=== PATIENT | male | born 1995 | race Caucasian/White ===

== ENCOUNTER 2017-01-17 19:03 | Emergency (ER) | payer OTHER ==
--- NOTE | 2017-01-17 19:16 | ED Physician Documentation ---
PD HPI BACK INJURY - Stated complaint Stated Complaint: LOW BACK PX - History obtained from History obtained from: Patient - History of Present Illness Location: Lower Pain level max: 8 Pain level now: 6 Quality: Pain, Spasm Improved by: Rest Worsened by: Moving, Palpating Associated symptoms: No: Fever, Weakness, Numbness, Incontinent of urine, Unable to urinate, Hematuria, Incontinent of stool Contributing factors: No: Anticoagulated, Prior back surgery, Prosthetic joint Similar symptoms before: Has not had sx before Recently seen: Not recently seen - Additional information Additional information: Patient states that he was doing lifts today with 135 pound weights, felt a "twinge" in his back and stopped the lift. He then went to work and his back is tightened up throughout the day. Now having increasing spasm. Took Motrin approximately 6 hours ago, 400 mg without relief. Review of Systems Ten Systems: 10 systems reviewed and negative Constitutional: denies: Fever, Chills Nose: denies: Rhinorrhea / runny nose, Congestion Throat: denies: Sore throat Cardiac: denies: Chest pain / pressure Respiratory: denies: Cough GI: denies: Abdominal Pain, Nausea, Vomiting, Diarrhea : denies: Dysuria, Frequency, Hesitancy, Incontinent Skin: denies: Rash Musculoskeletal: denies: Neck pain Neurologic: denies: Focal weakness, Numbness, Headache, Head injury PD PAST MEDICAL HISTORY - Past Medical History Past Medical History: No - Past Surgical History Past Surgical History: No - Present Medications Home Medications: Ambulatory Orders Medication Instructions Recorded Confirmed Cyclobenzaprine [Flexeril] 10 mg PO TID PRN #20 tablet 01/17/17 Meloxicam [Mobic] 7.5 mg PO BID PRN #20 tablet 01/17/17 - Allergies Allergies/Adverse Reactions: Allergies Allergy/AdvReac Type Severity Reaction Status Date / Time No Known Drug Allergies Allergy Verified 01/17/17 19:12 - Living Situation Living Arrangement: reports: At home - Social History Does the pt smoke?: No Does the pt have substance abuse?: No - Family History Family history: reports: Non contributory PD ED PE NORMAL - Vitals Vital signs reviewed: Yes - General General: Alert and oriented X 3, No acute distress, Well developed/nourished - HEENT HEENT: Moist mucous membranes - Neck Neck: Supple, no meningeal sign, No bony TTP - Cardiac Cardiac: RRR, Strong equal pulses - Respiratory Respiratory: No respiratory distress, Clear bilaterally - Abdomen Abdomen: Soft, Non tender, Non distended - Back Back: Other (No midline tenderness to palpation. There is paraspinal muscle spasm present bilaterally low to mid lumbar.) - Derm Derm: Warm and dry - Extremities Extremities: No calf tenderness / cord, Other (normal bilateral lower extremity patellar and ankle jerk reflexes. Normal great toe extension bilaterally) - Neuro Neuro: Alert and oriented X 3, No motor deficit, No sensory deficit - Psych Psych: Normal mood, Normal affect Results - Vitals Vitals: Vital Signs - 24 hr 01/17/17 01/17/17 19:09 19:56 Temperature 36.2 C L Heart Rate 66 65 Respiratory 14 16 Rate Blood Pressure 142/84 H 132/92 H O2 Saturation 100 98 Oxygen O2 Source Room air PD MEDICAL DECISION MAKING - ED course Complexity details: re-evaluated patient, considered differential (no cauda equina, no spinal epidural abscess, no fracture, no aortic dissection or evidence of aneursym rupture), d/w patient ED course: Patient is a 21-year-old male with low back pain, appears to be spasm pain. No evidence of fracture, cauda equina or epidural abscess. No saddle anesthesia. Given Toradol and Flexeril. Pain improved. Will place on pain medication and muscle relaxants for home and follow-up with his doctor. Patient counseled regarding signs and symptoms for which I believe and urgent re-evaluation would be necessary. Patient with good understanding of and agreement to plan and is comfortable going home at this time This document was made in part using voice recognition software. While efforts are made to proofread this document, sound alike and grammatical errors may occur. Departure - Departure Disposition: 01 Home, Self Care Clinical Impression: Back spasm Condition: Good Instructions: ED Low Back Pain Injury Follow-Up: Jewel Penaloza DO [Primary Care Provider] - Within 1 week Prescriptions: Cyclobenzaprine [Flexeril] 10 mg PO TID PRN #20 tablet PRN Reason: Spasms Meloxicam [Mobic] 7.5 mg PO BID PRN #20 tablet PRN Reason: pain Comments: Return if you worsen. This should improve over the next few days. Do not drive or operate heavy machinery while taking the Flexeril. Do not drink alcohol with the Flexeril. Discharge Date/Time: 01/17/17 19:57
[2017-01-17] MEDS ORDERED: DEXAMETHASONE 10 MG/ML VIAL PO STA (19:29)
[2017-01-17] MEDS ORDERED: CYCLOBENZAPRINE 10 MG TABLET PO STA (19:29)
[2017-01-17] MEDS ORDERED: KETOROLAC 60 MG/2 ML VIAL IM STA (19:29)
[2017-01-17] MEDS ORDERED: CYCLOBENZAPRINE 10 MG TABLET PO ONE (19:31)
[2017-01-17] MEDS ORDERED: KETOROLAC 60 MG/2 ML VIAL ONE (19:32)
[2017-01-17] MEDS ORDERED: CHERRY SYRUP 10 ML UDC PO ONE (19:32)
[2017-01-17] MEDS ORDERED: DEXAMETHASONE 10 MG/ML VIAL ONE (19:32)
[2017-01-17 19:57] VITALS: BP 132/92
== END 2017-01-17 19:57 | disposition home or self-care (01) ==
LOC: ED 19:03
DX: M62.830 Muscle spasm of back (principal)
CPT/HCPCS: 96372; 99283; A9270

== ENCOUNTER 2018-02-09 19:14 | Emergency (ER) | payer OTHER ==
[2018-02-09] MEDS ORDERED: IBUPROFEN 800 MG TABLET PO STA (20:01)
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
[2018-02-09 21:01] VITALS: BP 133/72
== END 2018-02-09 20:58 | disposition home or self-care (01) ==
LOC: ED 19:14
DX: S06.0X9A Concussion with loss of consciousness of unspecified duration, initial encounter (principal); S16.1XXA Strain of muscle, fascia and tendon at neck level, initial encounter; V28.4XXA Motorcycle driver injured in noncollision transport accident in traffic accident, initial encounter; Y93.I9 Activity, other involving external motion; Y92.410 Unspecified street and highway as the place of occurrence of the external cause; R03.0 Elevated blood-pressure reading, without diagnosis of hypertension
CPT/HCPCS: 70450; 72125; 99283; A9270